=== PATIENT | female | born 1980 | race Asian ===

== ENCOUNTER 2016-10-02 18:44 | Emergency (ER) | payer BC ==
[~2016-10-02] VITALS: Ht 152.4 cm; Wt 53.2 kg
[~2016-10-02 18:44] MED LIST: EFFSR75 PO; NLV/20 PO
[2016-10-02 18:48] VITALS: TEMP 36.4; Ht 152.4 cm; Wt 53.2 kg
[2016-10-02] MEDS ORDERED: IBUP-103 PO (19:05)
[2016-10-02] MEDS ORDERED: NORCO 5/325MG HOME PACK PO ONE (19:30)
[2016-10-02 19:44] VITALS: BP 125/87; PULSE 70; O2SAT 99
--- NOTE | 2016-10-02 22:21 | EMERGENCY ROOM VISIT NOTE ---
ED Visit Note First contact with patient: 18:56 CHIEF COMPLAINT: Toothache. HISTORY OF PRESENT ILLNESS: Ms. Ryan is a 36-year-old [place] female who ambulates into the ED accompanied by a male friend complaining of dental pain. Patient reports she was seen by oral surgery approximately one week ago for dental pain of tooth 3. She reports she was told that she needed a root canal; which is scheduled for tomorrow at 2 PM, and she was placed on antibiotic therapy and was given narcotics for pain. She reports she has completed her antibiotics and her narcotics. She reports a progressive dental pain for 20 hours over the right maxillary area. The pain is now steady and severe and radiates to the face and head. She has been using ibuprofen but has not really received any relief for her discomfort. Currently she is complaining of pain throbbing and sharp. She rates her discomfort 710. Her pain worsens with palpation of the tooth, chilling, exposure to hot and cold fluids and air. She denies any associated fevers, chills, sweats, facial swelling, sore throat, difficulty swallowing, voice changes, drooling, visual changes, hearing changes, difficulty speaking, neck pain/stiffness, difficulty ambulating/coordinating body movements. REVIEW OF SYSTEMS: As noted above in History of Present Illness. 8 body systems were reviewed with this patient and found to be negative unless noted above otherwise. PMH: Asthma, breast cancer, status post bilateral mastectomy. CURRENT MEDICATION: Tamoxifen. ALLERGIES TO MEDICATION: Patient denies. SOCIAL HISTORY: Patient is currently employed; she lives alone and feels safe in her home environment; she denies tobacco and alcohol use. PHYSICAL EXAM: Vital Signs: Date Time Temp Pulse Resp B/P Pulse Ox O2 Delivery O2 Flow Rate FiO2 10/02/16 19:44 70 18 125/87 99 10/02/16 18:48 36.4 89 16 147/94 95 Room Air General: 36 year-old female in mild distress due to pain, nontoxic appearing, afebrile and hemodynamically stable. Neurological: Awake, alert and oriented to person, place and time. Answering questions appropriately and following commands. Normal gait. Good hand eye coordination. No focal motor or sensory deficits. Skin: Warm, dry and pink. No soft tissue lesions, rashes, or trauma noted. HEENT: Atraumatic and normocephalic. Oral cavity is moist and pink. Airway is patent. Uvula is midline and no abscesses are seen. Speech is normal. No drooling. No intraoral trauma is noted. There is obvious signs of dental decay over tooth 3. I do not visualize or palpate any local abscesses. The gingiva is not erythematous or edematous. There is no facial swelling or tenderness in the area of her pain in the face or head. No cervical or submandibular lymphadenopathy. ED COURSE: Patient is assessed as noted above. Patient is educated about her findings and instructed on her treatment plan; she verbalizes understanding and agreement with this plan. CLINIC IMPRESSION: Dental pain. DISPOSITION: Patient discharged home in stable condition; prior to departure she was reassessed and subjectively reported she was feeling the same. PLAN: Comfort measures were discussed including a sliding pain scale of ibuprofen, acetaminophen and [place]. She was warned that [place] is a narcotic and once taking this medication she should not drink, drive or do any activities that require her full attention. Patient was encouraged to followup with personal dentist for definitive care and treatment. Patient was encouraged to return the ED for facial swelling or fevers or any new /concerning symptoms.
== END 2016-10-02 19:45 | disposition home or self-care (01) ==
LOC: C.EDB 18:45 → C.EDD 19:45
DX: K08.89 Other specified disorders of teeth and supporting structures (principal); J45.909 Unspecified asthma, uncomplicated; Z85.3 Personal history of malignant neoplasm of breast; Z90.13 Acquired absence of bilateral breasts and nipples

== ENCOUNTER → 2017-03-22 | Outpatient (CLI) | payer BC ==
[~2017-03-22] MED LIST changes: -EFFSR75 PO; +IBUP-103 PO; +IBUP-1449 PO; +OPTIRAY 320 IV PRN; +PRED20TA PO
--- NOTE | 2017-03-22 16:14 | DIAGNOSTIC IMAGING REPORT ---
CT HEAD COMBO CT DOSE: 1277.12 mGycm TECHNIQUE: Noncontrast images were obtained through the brain in the axial plane. The sequence was repeated following administration of 93 Optiray 320. A dose lowering technique was utilized adhering to the principles of ALARA. HISTORY: BRCA2 GENETIC CARRIER, NON INTRACTABLE HEADACHE COMPARISON: None. FINDINGS: No intra or extra-axial mass lesions are visualized. There is no CT evidence of acute cortical infarction. There is no evidence of midline shift. There is no acute hemorrhage. No calvarial fractures are visualized. There are no findings to indicate dural venous sinus thrombosis. There is no evidence of pathologic ventricular dilatation. There is no evidence of acute sinusitis Postcontrast images reveal no pathologically enhancing masses. There is a tiny right frontal developmental venous anomaly IMPRESSION: No acute intracranial findings Electronically signed by: Garrison Sinha M.D. 03/22/2017 4:13 PM Dictated Date/Time: 03/22/2017 4:11 PM
== END | disposition home or self-care (01) ==
LOC: C.CTS 15:51
PROVIDERS: ATTEND Internal Medicine Hematology
DX: C50.111 Malignant neoplasm of central portion of right female breast (principal); Z15.01 Genetic susceptibility to malignant neoplasm of breast; Z15.02 Genetic susceptibility to malignant neoplasm of ovary; R51 Headache

== ENCOUNTER 2017-04-01 11:25 | Emergency (ER) | payer BC ==
[~2017-04-01] VITALS: Ht 152.4 cm; Wt 51.5 kg
[~2017-04-01 11:25] MED LIST changes: -IBUP-1449 PO; -OPTIRAY 320 IV PRN; -PRED20TA PO
[2017-04-01 11:30] VITALS: TEMP 36.7; Ht 152.4 cm; Wt 51.5 kg
[2017-04-01] MEDS ORDERED: SODIUM CHLORIDE 0.9% 500ML 500 ML IV STA (11:40)
[2017-04-01] MEDS ORDERED: METHYLPREDNISOLONE 125 MG VIAL IV STA (11:40)
[2017-04-01] MEDS ORDERED: PROCHLORPERAZINE 5 MG/ML 2 ML VIAL IV STA (11:40)
[2017-04-01] MEDS ORDERED: DiphenhydrAMINE HCL 50 MG/ML VIAL IV STA (11:40)
[2017-04-01] MEDS ORDERED: SODIUM CHLORIDE 0.9% 1000ML 1,000 ML IV STA (11:40)
--- NOTE | 2017-04-01 12:06 | EMERGENCY ROOM VISIT NOTE ---
History Report prepared by Brennanibe: Cristiana Hernandez Under the Supervision of: Dr. Thelma Camejo M.D. First contact with patient: 11:35 Chief Complaint: HEADACHE Stated Complaint: MONTES FOR MONTHS, VOMITING, R EYE DISCOMFORT History of Present Illness The patient is a 37 year old female who presents to the Emergency Room with complaints of generalized illness starting 3 days ago. The patient notes she has a pressure headache that starting a couple months ago which she believes to be related to her present illness. She states she is going to see a neurologist soon for her headaches. She notes vomiting, chills, pain behind eye, and blurriness in her eyes. She denies any fever. The patient notes that she used to be on antidepressants and states that whenever she would forget her medication her headache would present itself similarly to how it is today. She denies any light sensitivity. The patient had a tooth implant in December. Source of History: patient Onset: 3 days ago Position: other (generalized) Quality: other (illness) Timing: constant Associated Symptoms: + chills, + headache, + vomiting, No fevers Note: The patient notes pain behind eye and blurriness in her eyes. Pt denies any light sensitivity. Review of Systems See HPI for pertinent positives & negatives. A total of 10 systems reviewed and were otherwise negative. Past Medical & Surgical Medical Problems: (1) Breast cancer Family History Cancer Social History Smoking Status: Never Smoker Alcohol Use: none Marital Status: Housing Status: lives with significant other Occupation Status: employed Current/Historical Medications Scheduled Prednisone (Prednisone), 40 MG PO DAILY Tamoxifen Citrate (Tamoxifen Citrate), 20 MG PO DAILY Scheduled PRN Ibuprofen Tab (Motrin), Unknown Dose PO Q6H PRN for Pain Allergies Coded Allergies: No Known Allergies (Unverified , 04/01/17) Physical Exam Vital Signs Date Time Temp Pulse Resp B/P (MAP) Pulse Ox O2 Delivery O2 Flow Rate FiO2 04/01/17 14:15 70 18 110/74 97 04/01/17 14:05 76 18 110/74 96 Room Air 04/01/17 13:45 90 18 107/72 99 Room Air 04/01/17 11:30 36.7 101 18 141/92 99 Room Air Physical Exam Vital signs reviewed. General: Well-appearing female, in no significant distress. HEENT: No scleral icterus, PERRLA, neck supple. Atraumatic. Cardiovascular: Regular rate and rhythm, no extra sounds. Pulmonary: Clear to auscultation bilaterally, normal work of breathing. Abdomen: Soft, nontender, nondistended, positive bowel sounds. Musculoskeletal: Atraumatic, no peripheral edema. Neurologic: Patient awake alert and oriented x 3, full strength in all 4 extremities. Cranial nerves 2 through 12 grossly intact. No meningeal signs Skin: Warm, dry, no rash Medical Decision & Procedures Laboratory Results 04/01/17 12:15 Red Blood Count 4.28, Mean Corpuscular Volume 95.1, Mean Corpuscular Hemoglobin 32.0, Mean Corpuscular Hemoglobin Concent 33.7, Mean Platelet Volume 10.2, Neutrophils (%) (Auto) 66.5, Lymphocytes (%) (Auto) 24.5, Monocytes (%) (Auto) 7.5, Eosinophils (%) (Auto) 0.8, Basophils (%) (Auto) 0.4, Neutrophils # (Auto) 5.15, Lymphocytes # (Auto) 1.89, Monocytes # (Auto) 0.58, Eosinophils # (Auto) 0.06, Basophils # (Auto) 0.03 04/01/17 12:15 Test 04/01/17 12:15 White Blood Count 7.73 K/uL (4.8-10.8) Red Blood Count 4.28 M/uL (4.2-5.4) Hemoglobin 13.7 g/dL (12.0-16.0) Hematocrit 40.7 % (37-47) Mean Corpuscular Volume 95.1 fL (80-100) Mean Corpuscular Hemoglobin 32.0 pg (25-34) Mean Corpuscular Hemoglobin Concent 33.7 g/dl (32-36) Platelet Count 235 K/uL (130-400) Mean Platelet Volume 10.2 fL (7.4-10.4) Neutrophils (%) (Auto) 66.5 % Lymphocytes (%) (Auto) 24.5 % Monocytes (%) (Auto) 7.5 % Eosinophils (%) (Auto) 0.8 % Basophils (%) (Auto) 0.4 % Neutrophils # (Auto) 5.15 K/uL (1.4-6.5) Lymphocytes # (Auto) 1.89 K/uL (1.2-3.4) Monocytes # (Auto) 0.58 K/uL (0.11-0.59) Eosinophils # (Auto) 0.06 K/uL (0-0.5) Basophils # (Auto) 0.03 K/uL (0-0.2) RDW Standard Deviation 42.1 fL (36.4-46.3) RDW Coefficient of Variation 12.2 % (11.5-14.5) Immature Granulocyte % (Auto) 0.3 % Immature Granulocyte # (Auto) 0.02 K/uL (0.00-0.02) Anion Gap 9.0 mmol/L (3-11) Est Creatinine Clear Calc Drug Dose 75.1 ml/min Estimated GFR () 121.1 Estimated GFR (Non- 104.5 BUN/Creatinine Ratio 19.2 (10-20) Calcium Level 8.7 mg/dl (8.5-10.1) Magnesium Level 2.1 mg/dl (1.8-2.4) Total Bilirubin 0.3 mg/dl (0.2-1) Direct Bilirubin 0.1 mg/dl (0-0.2) Aspartate Amino Transf (AST/SGOT) 27 U/L (15-37) Alanine Aminotransferase (ALT/SGPT) 35 U/L (12-78) Alkaline Phosphatase 36 U/L (45-117) Total Protein 7.4 gm/dl (6.4-8.2) Albumin 3.7 gm/dl (3.4-5.0) Laboratory results per my review. Medications Administered Medications (Trade) Dose Ordered Sig/Love Route Start Time Stop Time Status Last Admin Dose Admin Sodium Chloride 500 ml @ 999 mls/hr Q31M STAT IV 04/01/17 11:40 04/01/17 12:10 DC 04/01/17 12:27 999 MLS/HR Sodium Chloride 1,000 ml @ 200 mls/hr Q5H STAT IV 04/01/17 11:40 04/01/17 14:34 DC 04/01/17 12:27 200 MLS/HR Prochlorperazine Edisylate (Compazine Inj) 5 mg NOW STAT IV 04/01/17 11:40 04/01/17 11:43 DC 04/01/17 12:27 5 MG Diphenhydramine HCl (Benadryl Inj) 25 mg NOW STAT IV 04/01/17 11:40 04/01/17 11:43 DC 04/01/17 12:27 25 MG Methylprednisolone Sodium Succinate (Solu-Medrol IV) 125 mg NOW STAT IV 04/01/17 11:40 04/01/17 11:43 DC 04/01/17 12:27 125 MG ED Course 1138: Past medical records reviewed. The patient was evaluated in room B5. A complete history and physical examination was performed. 1140: Solu-Medrol IV 125 mg IV, Benadryl Inj 25 mg IV, Compazine Inj 5 mg IV, Sodium Chloride 1000 ml @ 200 mls/hr IV, Sodium Chloride 500 ml @ 999 mls/hr IV. 1417: Upon reevaluation, the patient appeared to have improvement of her symptoms. I discussed findings with her. She verbalized agreement of the treatment plan. The patient was discharged home. Medical Decision Differential diagnosis: Etiologies such as migraine headache, meningitis, sinusitis, CO exposure, ICH, SAH, infection, tumor, headache, sinus thrombosis, arterial dissection, as well as others were entertained. This patient was evaluated and appeared to be in no significant distress. IV access was obtained and laboratory work was drawn. Patient was placed on the clinical research monitor and found to be in a normal sinus rhythm. She was hydrated with normal saline solution, given IV Compazine, IV Benadryl and IV Solu- Medrol. Laboratory work is fairly unrevealing. Patient is a normal white blood cell count. She was feeling much improved but sleepy on my reevaluation. She was observed in the emergency department until she was safe for discharge. A cab was called as the patient had no family to contact. She does have follow-up with neurology in 48 hours. She will return to the ER for worsening of symptoms or any medical concerns. Medication Reconcilliation Current Medication List: was personally reviewed by me Blood Pressure Screening Patient's blood pressure: Elevated blood pressure Blood pressure disposition: Elevated BP felt to be situational Impression Primary Impression: Headache Scribe Attestation The scribe's documentation has been prepared under my direction and personally reviewed by me in its entirety. I confirm that the note above accurately reflects all work, treatment, procedures, and medical decision making performed by me. Departure Information Dispostion Home / Self-Care Prescriptions Prednisone (Prednisone) 20 Mg Tab 40 MG PO DAILY, #8 TAB Prov: Thelma Camejo M.D. 04/01/17 Referrals Clemente Parikh M.D. (PCP) Forms HOME CARE DOCUMENTATION FORM, IMPORTANT VISIT INFORMATION Patient Instructions My [facility] Additional Instructions Diagnosis: Headache Prednisone 40 mg daily for 4 more days, start tomorrow. Please drink plenty of clear fluids. Tylenol 650 mg every 6 hours as needed for pain. Follow-up with your physician this week for reevaluation. See neurology as scheduled in 2 days. Return to the ER for worsening of symptoms or any medical concerns.
[2017-04-01] MEDS ORDERED: IBUP-1449 PO (12:08)
[2017-04-01 12:44] LABS: BASO % 0.4 %; BASO ABS # 0.03 K/uL (0-0.2); COMPLETE YES; EOS % 0.8 %; HEMATOCRIT 40.7 % (37-47); IG% 0.3 %; LYMPH % 24.5 %; LYMPH ABS # 1.89 K/uL (1.2-3.4); MEAN CELL VOLUME 95.1 fL (80-100); MEAN CORPUSCULAR HGB CONC 33.7 g/dl (32-36); MEAN PLATELET VOLUME 10.2 fL (7.4-10.4); MONO % 7.5 %; NEUT % 66.5 %; PLATELET COUNT 235 K/uL (130-400); RED BLOOD COUNT 4.28 M/uL (4.2-5.4); WHITE BLOOD COUNT 7.73 K/uL (4.8-10.8)
[2017-04-01 13:02] LABS: BUN/CREATININE RATIO 19.2 (10-20); CALCIUM 8.7 mg/dl (8.5-10.1); CREATININE 0.73 mg/dl (0.60-1.20); MAGNESIUM 2.1 mg/dl (1.8-2.4); POTASSIUM 3.2 mmol/L (3.5-5.1)
[2017-04-01] MEDS ORDERED: PRED20TA PO (14:02)
[2017-04-01 14:15] VITALS: BP 110/74; PULSE 70; O2SAT 97
== END 2017-04-01 14:15 | disposition home or self-care (01) ==
LOC: C.EDB 11:26
DX: R51 Headache (principal); Z85.3 Personal history of malignant neoplasm of breast; Z80.9 Family history of malignant neoplasm, unspecified; Z79.899 Other long term (current) drug therapy